=== PATIENT | female | born 1935 | race Caucasian/White ===

== ENCOUNTER → 2016-07-02 | Outpatient (CLI) | payer MEDICARE, MEDICAID ==
[~2016-07-02] MED LIST: IOHEXOL-350 100 ML BOTTLE ONE; SODIUM CHLORIDE 0.9% 10ML VIAL ONE
== END | disposition home or self-care (01) ==
LOC: CT 10:15
PROVIDERS: ATTEND Psychiatry & Neurology Neurology
DX: I72.5 Aneurysm of other precerebral arteries (principal); G51.3 Clonic hemifacial spasm
CPT/HCPCS: 70496; A4216; J7040; Q9967